=== PATIENT | male | born 1985 | race Caucasian/White ===

== ENCOUNTER 2019-12-05 13:15 | Emergency (ER) | payer OTHER ==
[~2019-12-05] VITALS: Ht 172.7 cm; Wt 97.5 kg
[2019-12-05] MEDS ORDERED: PANTOPRAZOLE SO40 MG (13:31)
[2019-12-05] MEDS ORDERED: ZESTRIL40 M1 (13:31)
[2019-12-05] MEDS ORDERED: METHOCARBAMOL500 MG (13:31)
[2019-12-05] MEDS ORDERED: PROAIR RESPICL90 MCG (13:32)
[2019-12-05] MEDS ORDERED: KETO10TA2 PO (16:17)
[2019-12-05] MEDS ORDERED: NORFLEX100MG PO (16:17)
== END 2019-12-05 16:42 | disposition home or self-care (01) ==
LOC: ER 13:15
DX: S30.0XXA Contusion of lower back and pelvis, initial encounter (principal); W18.39XA Other fall on same level, initial encounter; Y93.89 Activity, other specified; Y92.89 Other specified places as the place of occurrence of the external cause; Y99.8 Other external cause status